=== PATIENT | female | born 1965 | race Two or more races ===

== ENCOUNTER 2022-10-11 09:27 | Outpatient (CLI) | payer OTHER | END 2022-10-11 09:49 | disposition home or self-care (01) | LOC: SONOGRAMA 09:27 | PROVIDERS: ATTEND Obstetrics & Gynecology Gynecology | DX: N84.0 Polyp of corpus uteri (principal) ==

== ENCOUNTER → 2022-10-11 | Emergency (ER) | payer OTHER ==
[~2022-10-11] VITALS: Ht 160 cm; Wt 52.2 kg
== END | disposition home or self-care (01) ==
LOC: ER 10:53
DX: R55 Syncope and collapse (principal); R42 Dizziness and giddiness; R53.1 Weakness